=== PATIENT | female | born 1980 ===

== ENCOUNTER 2018-10-03 12:40 | Outpatient (REF) | payer OTHER, SELFPAY | END 2018-10-03 13:00 | LOC: NCHCN 12:40 | PROVIDERS: PCP Nurse Practitioner Family; Visit Provider Nurse Practitioner Family | DX: N39.0 Urinary tract infection, site not specified (principal) | CPT/HCPCS: 87077; 87086; 87186 ==

== ENCOUNTER 2019-10-30 22:22 | Outpatient (REF) | payer OTHER, SELFPAY ==
[2019-11-03 21:28] LABS: SARS-CoV-2 RNA Undetected (Undetected); SARS-CoV-2 Specimen Source Nasopharynx
== END 2019-10-30 22:42 ==
LOC: NCHCN 22:22
PROVIDERS: PCP Nurse Practitioner Family; Visit Provider Family Medicine
DX: Z20.828 Contact with and (suspected) exposure to other viral communicable diseases (principal)
CPT/HCPCS: U0003